=== PATIENT | male | born 2000 ===

== ENCOUNTER 2025-05-13 07:19 | Emergency (ER) | payer OTHER, SELFPAY ==
--- NOTE | ~2025-05-13 | US_ITS ---
EXAMINATION: US ABDOMEN LIMITED HISTORY: RUQ tenderness TECHNIQUE: Real-time grayscale ultrasound imaging of the gallbladder was performed and images were reviewed. COMPARISON: There are no prior studies available for comparison. FINDINGS: The gallbladder is well-distended. There are no intraluminal calculi. There is no wall thickening. There may be trace pericholecystic fluid. There is no sonographic Squires sign. The common bile duct is normal in caliber measuring 2 mm. US/US abdomen limited IMPRESSION: Possible trace pericholecystic fluid. Otherwise unremarkable ultrasound of the gallbladder. Electronically signed by: Gus Han MD 05/13/2025 11:09 AM [facility]
[2025-05-13 07:35] VITALS: BP 109/52; PULSE 74; RESP 18; TEMP 36.6; O2SAT 100; BMI 23.8
[2025-05-13 09:01] LABS: MANUAL DIFF FLAG NO
[2025-05-13 09:03] LABS: Hematocrit 43.1 % (42.0-52.0); Hemoglobin 13.4 g/dl (14.0-18.0); Imm Gran Abs Auto 0.07 X10*3/uL (0.00-0.03); Imm Gran Pct Auto 0.8 % (0.0-0.4); Lymphocytes Absolute Auto 1.6 X10*3/uL (1.2-4.9); Mean Corpuscular HGB Conc 31.1 g/dl (31.0-36.0); Mean Corpuscular Hemoglobin 21.6 pg (27.0-33.0); Mean Corpuscular Volume 69.6 fL (80.0-98.0); NRBC Abs Auto 0.000 X10*3/uL (0.0-0.012); NRBC Pct Auto 0.0 /100WBC (0.0-0.2); Platelet Count 314 X10*3/uL (160-400); Red Blood Count 6.19 X10*6/uL (4.60-5.80); White Blood Count 8.6 X10*3/uL (4.8-10.8)
[2025-05-13 09:17] LABS: Alanine Aminotransferase 21 U/L (0-40); Albumin Level 4.9 g/dL (3.5-5.0); Alkaline Phosphatase 94 U/L (39-117); Anion Gap 13 (12-20); Aspartate Amino Transferase 26 U/L (5-37); Blood Urea Nitrogen 20 mg/dL (9-16); Calcium 10.0 mg/dL (8.4-10.2); Carbon Dioxide 26 mmol/L (22-29); Chloride 106 mmol/L (96-108); Creatinine Clr Calc Pharmacy 115.7; Estimated Glomerular Filt Rate > 60; Lipase 27 U/L (8-78); Potassium 5.0 mmol/L (3.3-5.1); Sodium 140 mmol/L (135-145); Total Protein 7.7 g/dL (6.5-8.0)
--- NOTE | 2025-05-13 09:41 | ED.GENADULT ---
HPI - General Adult General Chief complaint: Abdominal Pain Stated complaint: abd pain Time Seen by Provider: 05/13/25 09:41 Source: patient, RN notes reviewed and old records reviewed Mode of arrival: ambulatory Limitations: no limitations History of Present Illness ED Provider: William [facility] narrative: Patient is a 25-year-old male presenting to the emergency department with complaint of right upper quadrant abdominal pain for the past 2 weeks as well as nausea and diarrhea for few days. Reports waking up with night sweats but denies sweats/chills during the daytime. Denies history of prior abdominal surgeries. Denies hematochezia or melena. States pain became more severe this morning, 10/, but has improved to 6/10 without intervention currently. MD complaint: abdominal pain Onset (ago): week(s) Related Data Previous Rx's ?Medication ?Instructions ?Recorded famotidine 20 mg tablet 20 mg PO DAILY #30 tabs 05/13/25 Allergies Allergy/AdvReac Type Severity Reaction Status Date / Time No Known Allergies Allergy Verified 05/13/25 07:37 [facility] Social History Social History Smoked in Last 30 Days: No Use of substances other than those prescribed or required for medical reasons: Yes Substance Use Type: Marijuana Advance Directives: No Advance Directives Information Provided: Yes Do you have a plan to hurt others: No Plan Physical Exam ED Vital Signs: Vital Signs - 24 hr 05/13/25 07:35 05/13/25 10:12 05/13/25 12:21 Temperature 97.8 F 98.4 F 98.6 F Pulse Rate 74 71 67 Respiratory Rate 18 20 20 Blood Pressure 109/52 L 98/61 95/51 L Pulse Oximetry 100 100 99 Oxygen Delivery Method Room Air Room Air Room Air BMI result Body Mass Index 23.8 Medical Decision Making Medical Decision Making [facility] Narrative: Patient is a 25-year-old male presenting to the emergency department with complaint of right upper quadrant abdominal pain for the past 2 weeks as well as nausea and diarrhea for few days. On exam patient is awake, A+Ox3, VS WNL, afebrile, normal neurological exam without focal deficits, physical exam findings as above. Given reported symptoms and physical exam findings, initial differential includes but is not limited to cholecystitis, choledocolithiasis, GERD, gastritis, PUD. Labs unremarkable. Right upper quadrant ultrasound notable for trace pericholecystic fluid without evidence of cholecystitis. My interpretation is in agreement with the radiologist's interpretation. Will discharge patient home on famotidine. Will refer to GI if symptoms do not improve with medication. Return precautions discussed at bedside. Patient verbalized understanding of and agreement with plan. Differential Diagnosis Differential Diagnoses: The differential diagnosis associated with the presentation includes As per [facility] Admission/Observation Consideration of admission/observation: Escalation of care including admission/observation considered Patient would have been admitted to the hospital and transferred to appropriate facility had their clinical presentation warranted hospital admission. Lab Data [facility] Lab Attestation statement: I reviewed the patient's lab results. as per [facility] 05/13/25 08:58 05/13/25 08:58 Labs: Lab Results 05/13/25 05/13/25 Range/Units 08:58 10:12 WBC 8.6 (4.8-10.8) X10*3/uL RBC 6.19 H (4.60-5.80) X10*6/uL Hgb 13.4 L (14.0-18.0) g/dl Hct 43.1 (42.0-52.0) % MCV 69.6 L (80.0-98.0) fL MCH 21.6 L (27.0-33.0) pg MCHC 31.1 (31.0-36.0) g/dl RDW 15.7 (11.0-16.0) % Plt Count 314 (160-400) X10*3/uL MPV 9.2 L (9.4-12.4) fL Immature Gran % (Auto) 0.8 H (0.0-0.4) % Neut % (Auto) 73.0 (45-73) % Lymph % (Auto) 18.5 L (20-40) % Day % (Auto) 7.2 (2-11) % Eos % (Auto) 0.2 (0-4) % Baso % (Auto) 0.3 (0-2) % Lymph # (Auto) 1.6 (1.2-4.9) X10*3/uL Day # (Auto) 0.6 (0.1-1.2) X10*3/uL Eos # (Auto) 0.0 (0.0-0.4) X10*3/uL Baso # (Auto) 0.0 (0.0-0.2) X10*3/uL Abs Immat Gran (auto) 0.07 H (0.00-0.03) X10*3/uL Absolute Neuts (auto) 6.3 (2.0-8.3) x10*3/uL Absolute Nucleated RBC 0.000 (0.0-0.012) X10*3/uL Nucleated RBC % (auto) 0.0 (0.0-0.2) /100WBC Sodium 140 (135-145) mmol/L Potassium 5.0 (3.3-5.1) mmol/L Chloride 106 (96-108) mmol/L Carbon Dioxide 26 (22-29) mmol/L Anion Gap 13 (12-20) BUN 20 H (9-16) mg/dL Creatinine 0.88 (0.5-1.4) mg/dL Estim Creat Clear Calc 115.7 Estimated GFR > 60 Random Glucose 82 (60-115) mg/dL Calcium 10.0 (8.4-10.2) mg/dL Total Bilirubin 0.9 (0.0-1.0) mg/dL Direct Bilirubin 0.3 (0.0-0.5) mg/dL AST 26 (5-37) U/L ALT 21 (0-40) U/L Alkaline Phosphatase 94 (39-117) U/L Total Protein 7.7 (6.5-8.0) g/dL Albumin 4.9 (3.5-5.0) g/dL Lipase 27 (8-78) U/L Influenza Type A (PCR) NEGATIVE (Negative) Influenza Type B (PCR) NEGATIVE (Negative) RSV RNA Qual (PCR) NEGATIVE (Negative) SARS-CoV-2 RNA (RT-PCR) NEGATIVE (Negative) Independent Interpretation I performed an independent interpretation of an: Ultrasound Interpretation: RUQ U/S notable for trace pericholecystic fluid. Radiology Impression Discussion of test interpretation with radiology: I have reviewed the radiologist's reading. Radiologist Impression: US/US abdomen limited IMPRESSION: Possible trace pericholecystic fluid. Otherwise unremarkable ultrasound of the gallbladder. External Record Review External record reviewed: Inpatient record, Office record and Outpatient record Prescription Management I considered prescription management with: Other Discharge Plan Discharge Clinical Impression: Abdominal pain Patient Disposition: Home, Self-Care Additional Instructions: You were evaluated in the emergency department today for abdominal pain. Your labs and ultrasound were reassuring. You are being prescribed a medication called famotidine to take daily. If this medication does not improve your symptoms, we recommend that you follow up with a knitter hand. Follow up with your primary care provider as well. Return to the emergency department if you develop worsening pain, persistent vomiting, blood in your vomit or stool, fever 100.4 degrees Fahrenheit or greater or any other new or concerning symptoms. Prescriptions: New famotidine 20 mg tablet 20 mg PO DAILY Qty: 30 0RF Referrals: [facility] [place] [place] [facility] [Provider Group, Gastroenterology] - 2 weeks Clinical Impression: Abdominal pain Print Language: Ecuadorean
[2025-05-13 10:12] VITALS: BP 98/61; PULSE 71; RESP 20; TEMP 36.9; O2SAT 100
--- OUTSIDE RECORDS SUMMARY | 2025-05-13 10:59 | XMS_ITS | Encounter Summary ---
Author Organization [facility] Address [address] [place] [address] Phone Care Team Providers Care Payroll Specialist Name Role Phone Aditya Wilder MD Primary Care Provider [phone] Encounter Details Date Type Department Care Team (Late st Contact Info) Description 11/16/2015 Documentation [facility] [place] [address] [place] [address] Family Medicine, Physician [address] [place], [place] [phone] Social History Tobacco Use Types Packs/Day Years Used Date Smoking Tobacco: Never Assessed Sex and Gender Information Value Date Recorded Sex Assigned at Not on file Legal Sex Male 5:07 PM EDT Gender Identity Not on file Sexual Orientation Not on file documented as of this encounter Plan of Treatment Not on file documented as of this encounter Visit Diagnoses Not on filedocumented in this encounter Care Teams Payroll Specialist Relationship Specialty Start Date End Date Aditya Wilder MD [address] [place] [address] PCP - General 01/19/17 08/09/22 documented as of this encounter
--- OUTSIDE RECORDS SUMMARY | 2025-05-13 10:59 | XMS_ITS | Encounter Summary ---
Author Organization [facility] Address [address] [place] [address] Phone Care Team Providers Care Plating Engineer Name Role Phone Aditya Wilder MD Primary Care Provider [phone] Encounter Details Date Type Department Care Team (Late st Contact Info) Description 04/19/2012 Documentation [facility] [place] Family Medicine [address] [place] [address] Family Medicine, Physician [address] [place], [place] [phone] Social History Tobacco Use Types Packs/Day Years [...] on filedocumented in this encounter Care Teams Plating Engineer Relationship Specialty Start Date End Date Aditya Wilder MD [address] [place] [address] PCP - General 01/19/17 08/09/22 documented as of this encounter
--- OUTSIDE RECORDS SUMMARY | 2025-05-13 10:59 | XMS_ITS | Encounter Summary ---
Author Organization [facility] Address [address] [place] [address] Phone Care Team Providers Care Web Applications Developer Name Role Phone Aditya Wilder MD Primary Care Provider [phone] Encounter Details Date Type Department Care Team (Late st Contact Info) Description 10/08/2015 Documentation [facility] [place] Family Medicine [address] [place], [place] [id number] Family Medicine, Physician [address] [place], [place] [phone] Social History Tobacco Use Types Packs/Day Years [...] on filedocumented in this encounter Care Teams Web Applications Developer Relationship Specialty Start Date End Date Aditya Wilder MD [address] [place] [address] PCP - General 01/19/17 08/09/22 documented as of this encounter
--- OUTSIDE RECORDS SUMMARY | 2025-05-13 10:59 | XMS_ITS | Encounter Summary ---
Author Organization [facility] Address [address] [place] [address] Phone Care Team Providers Care Statistical Developer Name Role Phone Aditya Wilder MD Primary Care Provider [phone] Encounter Details Date Type Department Care Team (Late st Contact Info) Description 11/14/2013 Documentation [facility] [place] Family Medicine [address] [place] [address] Family Medicine, Physician [address] [place], [place] [phone] Social History Tobacco Use Types Packs/Day Years [...] on filedocumented in this encounter Care Teams Statistical Developer Relationship Specialty Start Date End Date Aditya Wilder MD [address] [place] [address] PCP - General 01/19/17 08/09/22 documented as of this encounter
--- OUTSIDE RECORDS SUMMARY | 2025-05-13 10:59 | XMS_ITS | Encounter Summary ---
Author Organization [facility] Address [address] [place] [address] Phone Care Team Providers Care Staff Nurse Midwife Name Role Phone Aditya Wilder MD Primary Care Provider [phone] Encounter Details Date Type Department Care Team (Late st Contact Info) Description 04/11/2011 Documentation [facility] [place] Family Medicine [address] [place] [address] Family Medicine, Physician [address] [place], [place] [phone] Social History Tobacco Use Types Packs/Day Years [...] on filedocumented in this encounter Care Teams Staff Nurse Midwife Relationship Specialty Start Date End Date Aditya Wilder MD [address] [place] [address] PCP - General 01/19/17 08/09/22 documented as of this encounter
--- OUTSIDE RECORDS SUMMARY | 2025-05-13 10:59 | XMS_ITS | Encounter Summary ---
Author Organization [facility] Address [address] [place] [address] Phone Care Team Providers Care Software Engineer Sales Name Role Phone Aditya Wilder MD Primary Care Provider [phone] Encounter Details Date Type Department Care Team (Late st Contact Info) Description 04/11/2011 Documentation [facility] [place] Family Medicine [address] [place] [address] Family Medicine, Physician [address] [place], [place] [phone] Social History Tobacco Use Types Packs/Day Years [...] on filedocumented in this encounter Care Teams Software Engineer Sales Relationship Specialty Start Date End Date Aditya Wilder MD [address] [place] [address] PCP - General 01/19/17 08/09/22 documented as of this encounter
--- OUTSIDE RECORDS SUMMARY | 2025-05-13 10:59 | XMS_ITS | Encounter Summary ---
Author Organization [facility] Address [address] [place] [address] Phone Care Team Providers Care Compensation And Benefits Manager Name Role Phone Aditya Wilder MD Primary Care Provider [phone] Encounter Details Date Type Department Care Team (Late st Contact Info) Description 12/22/2016 Documentation [facility] [place] [address] [place] [address] Family Medicine, Physician [address] [place], [place] [phone] Social History Tobacco Use Types Packs/Day Years Used Date Smoking Tobacco: Never Comments:Never smoker Sex and Gender Information Value Date Recorded Sex Assigned at Not on file Legal Sex Male 5:07 PM EDT Gender Identity Not on file Sexual Orientation Not on file documented as of this encounter Plan of Treatment Not on file documented as of this encounter Visit Diagnoses Not on filedocumented in this encounter Care Teams Compensation And Benefits Manager Relationship Specialty Start Date End Date Aditya Wilder MD [address] [place] [address] PCP - General 01/19/17 08/09/22 documented as of this encounter
--- OUTSIDE RECORDS SUMMARY | 2025-05-13 10:59 | XMS_ITS | Encounter Summary ---
Author Organization [facility] Address [address] [place] [address] Phone Care Team Providers Care Ad Operations Coordinator Name Role Phone dAitya Wilder MD Primary Care Provider Encounter Details Date Type Department Care Team (Late st Contact Info) Description 04/11/2011 Documentation [facility] [place] Family Medicine [address] [place] [address] Family Medicine, Physician [address] [place], [place] [phone] Social History Tobacco Use Types Packs/Day Years [...] on filedocumented in this encounter Care Teams Ad Operations Coordinator Relationship Specialty Start Date End Date Aditya Wilder MD [address] [place] [address] PCP - General 01/19/17 08/09/22 documented as of this encounter
--- OUTSIDE RECORDS SUMMARY | 2025-05-13 10:59 | XMS_ITS | Encounter Summary ---
Author Organization [facility] Address [address] [place] [address] Phone Care Team Providers Care Principal Software Engineer Name Role Phone Aditya Wilder MD Primary Care Provider Encounter Details Date Type Department Care Team (Late st Contact Info) Description 11/14/2013 Documentation [facility] [place] Family Medicine [address] [place] [address] Family Medicine, Physician [address] [place], [place] [phone] Social History Tobacco Use Types Packs/Day Years [...] on filedocumented in this encounter Care Teams Principal Software Engineer Relationship Specialty Start Date End Date Aditya Wilder MD [address] [place] [address] PCP - General 01/19/17 08/09/22 documented as of this encounter
--- OUTSIDE RECORDS SUMMARY | 2025-05-13 10:59 | XMS_ITS | Encounter Summary ---
Author Organization [facility] Address [address] [place] [address] Phone Care Team Providers Care Operations Intern Name Role Phone Aditya Wilder MD Primary Care Provider [phone] Encounter Details Date Type Department Care Team (Late st Contact Info) Description 04/11/2011 Documentation [facility] [place] Family Medicine [address] [place] [address] Family Medicine, Physician [address] [place], [place] [phone] Social History Tobacco Use Types Packs/Day Years [...] on filedocumented in this encounter Care Teams Operations Intern Relationship Specialty Start Date End Date Aditya Wilder MD [address] [place] [address] PCP - General 01/19/17 08/09/22 documented as of this encounter
--- OUTSIDE RECORDS SUMMARY | 2025-05-13 10:59 | XMS_ITS | Encounter Summary ---
Author Organization [facility] Address [address] [place] [address] Phone Care Team Providers Care Popped Corn Oven Attendant Name Role Phone Aditya Wilder MD Primary Care Provider [phone] Encounter Details Date Type Department Care Team (Late st Contact Info) Description 01/25/2017 Conversion Encounter [facility] [place] [address] [place] [address] Social History Tobacco Use Types Packs/Day Years [...] on filedocumented in this encounter Care Teams Popped Corn Oven Attendant Relationship Specialty Start Date End Date Aditya Wilder MD [address] [place] [address] PCP - General 01/19/17 08/09/22 documented as of this encounter
--- OUTSIDE RECORDS SUMMARY | 2025-05-13 10:59 | XMS_ITS | Encounter Summary ---
Author Organization [facility] Address [address] [place] [address] Phone Care Team Providers Care Soft Work Wrapper Layer And Examiner Name Role Phone Aditya Wilder MD Primary Care Provider [phone] Encounter Details Date Type Department Care Team (Late st Contact Info) Description 11/16/2015 Documentation [facility] [place] [address] [place] [address] Family Medicine, Physician [address] [place], [place] [phone] Social History Tobacco Use Types Packs/Day Years [...] on filedocumented in this encounter Care Teams Soft Work Wrapper Layer And Examiner Relationship Specialty Start Date End Date Aditya Wilder MD [address] [place] [address] PCP - General 01/19/17 08/09/22 documented as of this encounter
--- OUTSIDE RECORDS SUMMARY | 2025-05-13 10:59 | XMS_ITS | Encounter Summary ---
Author Organization [facility] Address [address] [place] [address] Phone Care Team Providers Care Ice Hockey Coach Name Role Phone Aditya Wilder MD Primary Care Provider [phone] Encounter Details Date Type Department Care Team (Late st Contact Info) Description 04/19/2012 [place] [facility] [place] [address] [place] [address] Family Medicine, Physician [address] [place], [place] [phone] Social History Tobacco Use Types Packs/Day Years [...] on filedocumented in this encounter Care Teams Ice Hockey Coach Relationship Specialty Start Date End Date Aditya Wilder MD [address] [place] [address] PCP - General 01/19/17 08/09/22 documented as of this encounter
--- OUTSIDE RECORDS SUMMARY | 2025-05-13 10:59 | XMS_ITS | Encounter Summary ---
Author Organization [facility] Address [address] [place] [address] Phone Care Team Providers Care Edge Runner Name Role Phone Aditya Wilder MD Primary Care Provider [phone] Encounter Details Date Type Department Care Team (Late st Contact Info) Description 11/16/2015 Documentation [facility] [place] [address] [place] [address] Family Medicine, Physician [address] [place], [place] [phone] Social History Tobacco Use Types Packs/Day Years [...] on filedocumented in this encounter Care Teams Edge Runner Relationship Specialty Start Date End Date Aditya Wilder MD [address] [place] [address] PCP - General 01/19/17 08/09/22 documented as of this encounter
--- OUTSIDE RECORDS SUMMARY | 2025-05-13 10:59 | XMS_ITS | Encounter Summary ---
Author Organization [facility] Address [address] [place] [address] Phone Care Team Providers Care Supervisor Blood Name Role Phone Aditya Wilder MD Primary Care Provider [phone] Encounter Details Date Type Department Care Team (Late st Contact Info) Description 12/22/2016 Documentation [facility] [place] [facility] [place] [address] [place] [address] Family Medicine, Physician [address] [place], [place] [address] Social History Tobacco Use Types Packs/Day Years [...] on filedocumented in this encounter Care Teams Supervisor Blood Relationship Specialty Start Date End Date Aditya Wilder MD 150 [place] [address] PCP - General 01/19/17 08/09/22 documented as of this encounter
--- OUTSIDE RECORDS SUMMARY | 2025-05-13 10:59 | XMS_ITS | Encounter Summary ---
Author Organization [facility] Address [address] [place] [address] Phone Care Team Providers Care Trapper Animal Name Role Phone Aditya Wilder MD Primary Care Provider [phone] Encounter Details Date Type Department Care Team (Late st Contact Info) Description 04/12/2011 Documentation [facility] [place] Family Medicine [address] [place] [address] Family Medicine, Physician [address] [place], [place] [phone] Social History Tobacco Use Types Packs/Day Years [...] on filedocumented in this encounter Care Teams Trapper Animal Relationship Specialty Start Date End Date Aditya Wilder MD [address] [place] [address] PCP - General 01/19/17 08/09/22 documented as of this encounter
--- OUTSIDE RECORDS SUMMARY | 2025-05-13 10:59 | XMS_ITS | Encounter Summary ---
Author Organization [facility] Address [address] [place] [address] Phone Care Team Providers Care Dandy Tender Name Role Phone Aditya Wilder MD Primary Care Provider [phone] Encounter Details Date Type Department Care Team (Late st Contact Info) Description 11/16/2015 Documentation [facility] [place] Family Medicine [address] [place] [address] Family Medicine, Physician [address] [place], [place] [phone] Social History Tobacco Use Types Packs/Day Years [...] on filedocumented in this encounter Care Teams Dandy Tender Relationship Specialty Start Date End Date Aditya Wilder MD [address] [place] [address] PCP - General 01/19/17 08/09/22 documented as of this encounter
--- OUTSIDE RECORDS SUMMARY | 2025-05-13 10:59 | XMS_ITS | Encounter Summary ---
Author Organization [facility] Address [address] [place] [address] Phone Care Team Providers Care Food Service Sales Representatives Name Role Phone Aditya Wilder MD Primary Care Provider [phone] Encounter Details Date Type Department Care Team (Late st Contact Info) Description 12/22/2016 Documentation [facility] Family Medicine [address] [place] [address] Family Medicine, Physician [address] [place], [place] [address] Social History Tobacco Use Types Packs/Day Years [...] on filedocumented in this encounter Care Teams Food Service Sales Representatives Relationship Specialty Start Date End Date Aditya Wilder MD [address] [facility] [place] [address] PCP - General 01/19/17 08/09/22 documented as of this encounter
--- OUTSIDE RECORDS SUMMARY | 2025-05-13 10:59 | XMS_ITS | Encounter Summary ---
Author Organization [facility] Address [address] [place] [address] Phone Care Team Providers Care Escrow Assistant Name Role Phone Aditya Wilder MD Primary Care Provider [phone] Encounter Details Date Type Department Care Team (Late st Contact Info) Description 04/19/2012 Documentation [facility] [place] Family Medicine [address] [place] [address] Family Medicine, Physician [address] [place], [place] [phone] Social History Tobacco Use Types Packs/Day Years [...] on filedocumented in this encounter Care Teams Escrow Assistant Relationship Specialty Start Date End Date Aditya Wilder MD [address] [place] [address] PCP - General 01/19/17 08/09/22 documented as of this encounter
--- OUTSIDE RECORDS SUMMARY | 2025-05-13 10:59 | XMS_ITS | Encounter Summary ---
Author Organization [facility] Address [address] [place] [id number] Phone Care Team Providers Care Credit Advisor Name Role Phone Aditya Wilder MD Primary Care Provider [phone] Encounter Details Date Type Department Care Team (Late st Contact Info) Description 11/14/2013 Documentation [facility] [place] [facility] [address] [place] [address] Family Medicine, Physician [address] [place], [place] [id number] Social History Tobacco Use Types Packs/Day Years [...] on filedocumented in this encounter Care Teams Credit Advisor Relationship Specialty Start Date End Date Aditya Wilder MD [address] [place] [address] PCP - General 01/19/17 08/09/22 documented as of this encounter
--- OUTSIDE RECORDS SUMMARY | 2025-05-13 10:59 | XMS_ITS | Encounter Summary ---
Author Organization [facility] Address [address] [place] [phone] Phone Care Team Providers Care Survey Statistician Name Role Phone Aditya Wilder MD Primary Care Provider Encounter Details Date Type Department Care Team (Late st Contact Info) Description 04/11/2011 Documentation [facility] [place] [facility] [address] [place] [address] Family Medicine, Physician [address] [place], [place] [id number] Social History Tobacco Use Types Packs/Day Years [...] on filedocumented in this encounter Care Teams Survey Statistician Relationship Specialty Start Date End Date Aditya Wilder MD [address] [place] [address] PCP - General 01/19/17 08/09/22 documented as of this encounter
--- OUTSIDE RECORDS SUMMARY | 2025-05-13 10:59 | XMS_ITS | Clinical Summary ---
Author Organization [facility] Address [address] [place] [address] Phone Care Team Providers Care Junior Java Developer Name Role Phone Unavailable Primary Care Provider Unavailabl e Allergies No known active allergies Medications [id number] PAP (THERAFLU COLD & SORE THROAT PO) Take by mouth every 4 (four) hours as needed. Active ibuprofen 200 MG tablet Take 200 mg by mouth every 6 (six) hours as needed. Active Active Problems Problem Noted Date Diagnosed Date Myopia of both eyes 12/21/2016 Immunizations Immunization Administration Dates Next Due DTaP 06/29/2004, 4,11/21/2002,11/28,2000 HPV Vaccine 9 Valent 11/15/2015 HPV, Quadrivalent 11/13/2013 Hep A, ped/adol 11/13/2013,07/27/2010 Hep B, ped/adol 2000,2000,2000 Hib (HbOC) 07/24/2001, 1,2000,07/18 IPV 06/29/2004, 1,2000,07/18 Influenza Split 2012,04/10/2011 Influenza, injectable, quadr ivalent, preservative free 05/31/2018,02/22/2017 MMR 06/29/2004,07/24/2001 Meningococcal B Trumenba 12/02/2018,05/31/2018 Meningococcal Conj (Menactra) MCV4P 12/21/2016,1 Pneumococcal Conjugate 11/21/2002 Tdap 04/10/2011 Varicella 03/16/2005,11/25/2001 Family History Medical History Relation Name Comments No Known Problems Father trudy Breast cancer Father's Sister No Known Problems Mother quoc Diabetes Other Hyperlipidemia Other Obesity Other Stroke Other Sudden Other No Known Problems Sister 1 alma No Known Problems Sister 2 aleisha Relation Name Status Comments Father trudy Alive Father: healthy Father's Sister Mother quoc Alive Mother: healthy Other Family history of *Sudden /PR under 55, No family history of Asthma, Family history of *Dental caries, Family history of Hyperlipidemia, Family history of Developmental dislocation of hip, Family history of Diabetes mellitus, Family history of Cancer, breast, Family history of Obesity, Family history of *CVA/Stroke, No family history of Deafness Paternal Grandmother Sergey alexander aunt: breast Sister 1 alma Alive Sister: Alive a nd well, Alive and well Sister 2 aleisha Alive Sister: Alive a nd well, Alive and well Social History Tobacco Use Types Packs/Day Years Used Date Smoking Tobacco: Never Smokeless Tobacco: Never Comments:Never smoker Alcohol Use Standard Drinks/Week Comments No 0 (1 standard drink = 0.6 oz pur e alcohol) Hunger/Food Answer Date Recorded No 03/06/2020 Stable Housing Answer Date Recorded No 03/06/2020 Transportation Concerns Answer Date Rec orded No 03/06/2020 Hazards in Home Answer Date Recorded No 04/24/2020 Financing Utilities Answer Date Recorde d No 04/24/2020 Safety at Home Answer Date Recorded No 04/24/2020 Outside Support Answer Date Recorded No 04/24/2020 Understanding Health Concerns Answer Da te Recorded No 04/24/2020 Financing Health Concerns Answer Date R ecorded No 04/24/2020 Missing School or Work Answer Date Adolfo rded No 04/24/2020 Sex and Gender Information Value Date Recorded Sex Assigned at Not on file Legal Sex Male 5:07 PM EDT Gender Identity Not on file Sexual Orientation Not on file Last Filed Vital Signs Vital Sign Reading Time Taken Comments Blood Pressure 117/70 05/31/2018 9:13 AM EST Pulse 80 05/31/2018 9:13 AM EST Temperature 36.6 C (97.9 F) 06/26/2017 11:15 AM EST Respiratory Rate - - Oxygen Saturation - - Inhaled Oxygen Concentration - - Weight 75.3 kg (166 lb) 05/31/2018 9:13 AM EST Height 166.4 cm (5' 5.5 ) 05/31/2018 9:13 AM EST Body Mass Index 27.2 05/31/2018 9:13 AM EST Plan of Treatment Health Maintenance Due Date Last Done Comments DTaP,Tdap,and Td Vaccines (7 - Td or Tdap) 04/10/2021 04/10/2011, 06/29/2004, 09/09/2003, Additional history exists Influenza Vaccines (#1) 2025 05/31/20 18, 02/22/2017, 2012, Additional history exists COVID-19 Vaccine ( - 2024-2 6 season) 2025 Hepatitis B Vaccines Completed 2000, 2000, 2000 HIB Vaccines Completed 07/24/2001, 11/10, 2000, Additional history exists Pneumococcal Vaccine Completed 11/21/2002 IPV Vaccines Completed 06/29/2004, 11/10, 2000, Additional history exists MMR Vaccines Completed 06/29/2004, 07/24/2001 Varicella Vaccines Completed 03/16/2005, 11/25/2001 Hepatitis A Vaccines Completed 11/13/2013, 07/27/19 11 HPV Vaccines Completed 11/15/2015, 11/13/2013 Meningococcal Vaccine Completed 12/21/2016, 011 Men B Vaccine Completed 12/02/2018, 05/31/2018 Insurance NON PCC
[2025-05-13 11:16] LABS: Resp Syncy Virus RNA Qual PCR NEGATIVE (Negative); SARS COV2 PCR INHOUSE NEGATIVE (Negative)
[2025-05-13 12:21] VITALS: BP 95/51; PULSE 67; RESP 20; TEMP 37; O2SAT 99
[2025-05-13 13:48] VITALS: BP 95/51; PULSE 67; RESP 20; TEMP 37; O2SAT 99
[2025-05-13 13:56] LABS: Appearance Urine Clear; Glucose Urine UA Negative (Negative); PH 6.0 (5.0-9.0); Specific Gravity - Urine >= 1.030 (1.005-1.025)
== END 2025-05-13 13:50 | disposition home or self-care (01) ==
PROVIDERS: Registered Nurse Emergency; Emergency Provider Emergency Medicine
DX: R10.9 Unspecified abdominal pain (principal); R11.2 Nausea with vomiting, unspecified
CPT/HCPCS: 36415; 76705; 80048; 80076; 81003; 83690; 85025; 87637; 99284

== ENCOUNTER → 2025-05-13 10:17 | Outpatient (BNV) | payer OTHER, SELFPAY | PROVIDERS: Emergency Provider Emergency Medicine; Visit Provider Radiology Diagnostic Radiology | DX: R10.811 Right upper quadrant abdominal tenderness (principal) | CPT/HCPCS: 76705 ==